=== PATIENT | female | born 1985 | race Caucasian/White ===

== ENCOUNTER → 2022-08-04 | Outpatient (CLI) | payer OTHER ==
--- NOTE | 2022-08-04 10:17 | CT ---
EXAMINATION TYPE: CT sinus wo con DATE OF EXAM: 08/04/2022 COMPARISON: None HISTORY: chronic sinusitis CT DLP: 561 mGycm. Automated Exposure Control for Dose Reduction was Utilized. TECHNIQUE: CT scan of the sinuses is performed without contrast, axial images are obtained, coronal r eformatted images are also reviewed. FINDINGS: The paranasal sinuses including the frontal, ethmoid, sphenoid, and maxillary sinuses bila terally are well-aerated with a large mucous retention cyst or polyp along the inferior margin of the right maxillary sinus. Remaining sinuses appear normal aeration. Without evidence of significant pos t thickening. Slight nasal septal deviation.. The ostiomeatal complex is patent bilaterally on the c oronal images. Bilateral soft tissue opacification of the mastoid air cells compatible with mild to moderate chronic mastoiditis.. The globes are intact bilaterally. IMPRESSION: 1. There is a large mucous retention cyst or polyp along the inferior maxillary antrum on the right w ith no other CT evidence of sinusitis. Ostiomeatal complexes patent bilaterally. 2. Bilateral soft tissue opacification of the mastoid air cells compatible with mild to moderate emergency veterinary assistant lico mastoiditis. 3. Slight nasal septal deviation
== END | disposition home or self-care (01) ==
LOC: RADCTMAIN 09:26
PROVIDERS: ATTEND Family Medicine
DX: J32.9 Chronic sinusitis, unspecified (principal); J34.89 Other specified disorders of nose and nasal sinuses; J34.2 Deviated nasal septum
CPT/HCPCS: 70486

== ENCOUNTER 2023-09-03 19:25 | Emergency (ER) | payer OTHER ==
--- NOTE | 2023-09-03 20:06 | ED ---
Skin/Abscess/FB HPI - General Source: patient, RN notes reviewed Mode of arrival: ambulatory Limitations: no limitations <Sherley Reinoso - Last Filed: 09/06/23 13:00> <Tobias Estrada - Last Filed: 09/09/23 19:56> - General Chief complaint: Skin/Abscess/Foreign Body Stated complaint: Wounds on Left Leg Time Seen by Provider: 09/03/23 19:40 - History of Present Illness Initial comments: Quick [id number] female with presents with complaints of wound on her left leg. Patient states that she went to her primary care office today where the wounds were dressed and she was sent home on Keflex. Patient said that she is having burning of the left leg after wrapping. Denies having wounds cultured in the past. (Sherley Reinoso) - Related Data Allergies Allergy/AdvReac Type Severity Reaction Status Date / Time adhesive AdvReac Rash/Hives Verified 09/03/23 19:34 latex AdvReac Rash/Hives Verified 09/03/23 19:34 Review of Systems ROS Other: All systems not noted in ROS Statement are negative. <Sherley Reinoso - Last Filed: 09/06/23 13:00> ROS Other: All systems not noted in ROS Statement are negative. <Tobias Estrada - Last Filed: 09/09/23 19:56> ROS Statement: Those systems with pertinent positive or pertinent negative responses have been documented in the HPI. Past Medical History Past Medical History: Asthma, Hypertension History of Any Multi-Drug Resistant Organisms: None Reported Past Surgical History: Section Past Psychological History: No Psychological Hx Reported Smoking Status: Never smoker Past Alcohol Use History: Rare Past Drug Use History: None Reported <Sherley Reinoso - Last Filed: 09/06/23 13:00> General Exam Limitations: no limitations <Sherley Reinoso - Last Filed: 09/06/23 13:00> Limitations: no limitations General appearance: alert, in no apparent distress Respiratory exam: Present: normal lung sounds bilaterally. Absent: respiratory distress, wheezes, rales, rhonchi, stridor Cardiovascular Exam: Present: regular rate, normal rhythm, normal heart sounds. Absent: systolic murmur, diastolic murmur, rubs, gallop Neurological exam: Present: alert. Absent: motor sensory deficit Skin exam: Present: warm, dry, intact, other (The patient does have a pretibial ulcer. There is small amount of exudate. No purulent drainage. No warmth.) <Tobias Estrada - Last Filed: 09/09/23 19:56> - General Exam Comments Initial Comments: Visual Physical Exam Vital signs reviewed General: Well-appearing, nontoxic, no acute distress. Head: Normocephalic, atraumatic Eyes: PERRLA, EOMI ENT: Airway patent Chest: Nonlabored breathing Skin: No visual rash, normal skin tone Neuro: Alert and oriented 3 Musculoskeletal: No gross abnormalities (Sherley Reinoso) Course Vital Signs 09/03/23 09/03/23 09/03/23 19:31 20:44 21:48 Temperature 98.1 F Pulse Rate 98 98 93 Respiratory 18 22 20 Rate Blood Pressure 191/137 222/122 191/117 O2 Sat by Pulse 97 95 95 Oximetry 09/03/23 22:16 Temperature 97.6 F Pulse Rate 97 Respiratory 20 Rate Blood Pressure 174/118 O2 Sat by Pulse 95 Oximetry Medical Decision Making <Sherley Reinoso - Last Filed: 09/06/23 13:00> <Tobias Estrada - Last Filed: 09/09/23 19:56> - Medical Decision Making I completed the quick note portion of this chart signed Sherley Reinoso PA-C (Sherley Reinoso) Patient is a 37-year-old woman who presents to have reevaluation of ulcer on her leg that was dressed in the clinic. She did not appear to be tolerating the Unna boot that had been applied. There does not appear to be acute infection. I did redress with nonadherent dressing and antibiotic ointment. Patient is given follow-up information for wound care clinic, discussed appropriate further care and follow-up Was pt. sent in by a medical professional or institution ([facility] Albrecht, MARKETING TEACHER, urgent care, hospital, or longterm...) When possible be specific @ -[No] Did you speak to anyone other than the patient for history (EMS, parent, family, police, friend...)? What history was obtained from this source @ -[No] Did you review nursing and triage notes (agree or disagree)? Why? @ -[I reviewed and agree with nursing and triage notes] Were old charts reviewed (outside hosp., previous admission, EMS record, old EKG, old radiological studies, urgent care reports/EKG's, longterm records)? Report findings @ -[No old charts were reviewed] Differential Diagnosis (chest pain, altered mental status, abdominal pain women, abdominal pain men, vaginal bleeding, weakness, fever, dyspnea, syncope, headache, dizziness, GI bleed, back pain, seizure, CVA, palpatations, mental health, musculoskeletal)? @ -[The differential diagnosis includes stasis ulcer, cellulitis, amongst other conditions EKG interpreted by me (3pts min.). @ -[As above] X-rays interpreted by me (1pt min.). @ -[None done] CT interpreted by me (1pt min.). @ -[None done] U/S interpreted by me (1pt. min.). @ -[None done] What testing was considered but not performed or refused? (CT, X-rays, U/S, labs)? Why? @ -[None] What meds were considered but not given or refused? Why? @ -[None] Did you discuss the management of the patient with other professionals (professionals i.e. , PA, MARKETING TEACHER, lab, RT, psych nurse, manager social work, process developer, teacher, safety security officer, family caseworker)? Give summary @ -[No] Was smoking cessation discussed for >3mins.? @ -[No] Was critical care preformed (if so, how long)? @ -[No] Were there social determinants of health that impacted care today? How? (Homele ssness, low income, unemployed, alcoholism, drug addiction, transportation, low edu. Level, literacy, decrease access to med. care, snf, rehab)? @ -[No] Was there de-escalation of care discussed even if they declined (Discuss DNR or withdrawal of care, Hospice)? DNR status @ -[No] What co-morbidities impacted this encounter? (DM, HTN, Smoking, COPD, CAD, Cancer, CVA, ARF, Chemo, Hep., AIDS, mental health diagnosis, sleep apnea, morbid obesity)? @ -[None] Was patient admitted / discharged? Hospital course, mention meds given and route, prescriptions, significant lab abnormalities, going to OR and other pertinent info. @ -[hospital course] Undiagnosed new problem with uncertain prognosis? @ -[No] Drug Therapy requiring intensive monitoring for toxicity (Heparin, Nitro, Insulin, Cardizem)? @ -[No] Were any procedures done? @ -[No] Diagnosis/symptom? @ -[Acute stasis ulcer Acute, or Chronic, or Acute on Chronic? @ -[Acute Uncomplicated (without systemic symptoms) or Complicated (systemic symptoms)? @ -[Uncomplicated Side effects of treatment? @ -[No] Exacerbation, Progression, or Severe Exacerbation? @ -[No] Poses a threat to life or bodily function? How? (Chest pain, [place], [place], pneumonia, PE, COPD, DKA, ARF, appy, cholecystitis, CVA, Diverticulitis, Homicidal, Suicidal, threat to staff... and all critical care pts) @ -[No] (Tobias Estrada) Disposition <Sherley Reinoso - Last Filed: 09/06/23 13:00> Is patient prescribed a controlled substance at d/c from ED?: No <Tobias Estrada - Last Filed: 09/09/23 19:56> Clinical Impression: Stasis ulcer of left lower extremity, Hypertension Disposition: HOME SELF-CARE Condition: Fair Instructions (If sedation given, give patient instructions): Stasis Dermatitis (ED), Hypertension (ED) Referrals: None,Stated [REFERRING] - 1-2 days [facility] [NON-STAFF] - 1-2 days
[2023-09-03] MEDS: BACITRACIN OINT 1 EACH PACKET TOPICAL ONE (21:48)
[2023-09-03 21:51] VITALS: RESP 20
[2023-09-03 22:32] VITALS: BP 174/118; PULSE 97; TEMP 97.6
== END 2023-09-03 22:16 | disposition home or self-care (01) ==
LOC: EC 19:25
DX: I83.029 Varicose veins of left lower extremity with ulcer of unspecified site (principal); I10 Essential (primary) hypertension; Z91.09 Other allergy status, other than to drugs and biological substances; Z91.040 Latex allergy status
CPT/HCPCS: 99283